=== PATIENT | female | born 1985 ===

== ENCOUNTER 2017-12-15 17:55 | Emergency (ER) | payer OTHER ==
[2017-12-15 18:10] VITALS: RESP 16
--- NOTE | 2017-12-15 18:46 | ED PDOC ---
HPI: Female Pain Time Seen by Provider: 12/15/17 18:26 Chief Complaint (Nursing): Female Genitourinary Chief Complaint (Provider): with abdominal pain and bleeding History Per: Patient Additional Complaint(s): 32-year-old female currently 10 weeks presents with abdominal pain and vaginal bleeding that started earlier today. Patient has mild nausea with no vomiting. This patient's second . She has one child and denies history of miscarriage or ectopic. PMD: none Past Medical History Reviewed: Historical Data, Nursing Documentation, Vital Signs Vital Signs: Last Vital Signs Temp 99.2 F 12/15/17 18:07 Pulse 67 12/15/17 18:07 Resp 16 12/15/17 18:07 BP 92/63 L 12/15/17 18:07 Pulse Ox 99 12/15/17 18:07 - Medical History PMH: No Chronic Diseases Other PMH: - Surgical History Surgical History: No Surg Hx - Family History Family History: States: No Known Family Hx - Living Arrangements Living Arrangements: With Family - Social History Current smoker - smoking cessation education provided: No Alcohol: None Drugs: Denies - Allergies Allergies/Adverse Reactions: Allergies Allergy/AdvReac Type Severity Reaction Status Date / Time No Known Allergies Allergy Verified 12/15/17 18:07 Review of Systems ROS Statement: Except As Marked, All Systems Reviewed And Found Negative Constitutional: Negative for: Fever Genitourinary Female: Positive for: Vaginal Bleeding, Pelvic Pain Physical Exam - Reviewed Nursing Documentation Reviewed: Yes Vital Signs Reviewed: Yes - Physical Exam Appears: Positive for: Well, Non-toxic, No Acute Distress Skin: Positive for: Normal Color. Negative for: Rash Eye Exam: Positive for: Normal appearance Cardiovascular/Chest: Positive for: Regular Rate, Rhythm Respiratory: Positive for: Normal Breath Sounds Gastrointestinal/Abdominal: Positive for: Soft. Negative for: Tenderness, Distended, Guarding, Rebound Back: Negative for: L CVA Tenderness, R CVA Tenderness Extremity: Positive for: Normal ROM Neurologic/Psych: Positive for: Alert, Oriented - Laboratory Results Result Diagrams: 12/15/17 18:58 12/15/17 18:58 Urine POC: Positive Urine dip results: Positive for: Leukocyte Esterase (trace), Blood (small). Negative for: Nitrate, Ketones, Glucose, Bilirubin, Protein - ECG O2 Sat by Pulse Oximetry: 99 Pulse Ox Interpretation: Normal Medical Decision Making Medical Decision Makin32 y/o female with abdominal pain and bleeding Plan: test Urine dip CBC CMP Beta quant T&S IVF PO tylenol OB TV US Disposition - Clinical Impression Clinical Impression: Vaginal bleeding during - Patient ED Disposition Is Patient to be Admitted: Transfer of Care - Disposition Disposition: Transfer of Care Disposition Time: 20:00 Condition: FAIR Forms: [facility] (Kiswahili) Patient Signed Over To: [facility] [place] Handoff Comments: Signed out pending diagnostic testing results and final disposition
[2017-12-15] MEDS ORDERED: Sodium Chloride 0.9% 1,000 ML IV STA (18:48)
[2017-12-15 19:07] LABS: BASO % 0.7 % (0.0-2.0); EOS # 0.2 K/uL (0.0-0.7); EOS % 4.2 % (0.0-4.0); HEMOGLOBIN 12.2 g/dL (12.0-16.0); LYMPH # 1.1 K/uL (1.0-4.3); LYMPH % 19.3 % (20.0-40.0); MEAN CELL VOLUME 89.9 fl (81.0-99.0); MEAN CORPUSCULAR HEMOGLOBIN 30.9 pg (27.0-31.0); MEAN CORPUSCULAR HGB CONC 34.4 g/dL (33.0-37.0); MEAN PLATELET VOLUME 8.6 fl (7.2-11.7); MONO # 0.4 K/uL (0.0-0.8); MONO % 7.7 % (0.0-10.0); NEUT % 68.1 % (50.0-75.0); RBC 3.95 Mil/uL (3.80-5.20); RED CELL DISTRIBUTION WIDTH 13.5 % (11.5-14.5); WHITE BLOOD COUNT 5.8 K/uL (4.8-10.8)
[2017-12-15 19:18] LABS: ALB/GLOB RATIO 1.2 (1.0-2.1); ALBUMIN 3.5 g/dL (3.5-5.0); ALT/SGPT 33 U/L (9-52); AST/SGOT 22 U/L (14-36); BLOOD UREA NITROGEN 6 mg/dl (7-17); CALCIUM 8.6 mg/dL (8.4-10.2); GFR NON-AFRICAN AMERICAN > 60
[2017-12-15 19:30] LABS: SQUAMOUS EPITHIAL 4 /hpf (0-5); URINE BACTERIA RARE (<OCC); URINE BILIRUBIN NEGATIVE (NEGATIVE); URINE BLOOD SMALL (NEGATIVE); URINE CLARITY CLOUDY (Clear); URINE COLOR YELLOW (YELLOW); URINE GLUCOSE (UA) NEG (Normal); URINE LEUKOCYTE ESTERASE TRACE Leu/uL (Negative); URINE PROTEIN NEGATIVE (NEGATIVE); URINE UROBILINOGEN 0.2-1.0 mg/dL (0.2-1.0)
--- NOTE | 2017-12-15 21:44 | ED PDOC ---
- Laboratory Results Result Diagrams: 12/15/17 18:58 12/15/17 18:58 Urine POC: Positive - ECG O2 Sat by Pulse Oximetry: 99 Medical Decision Making Medical Decision Making: US with (+) gestational sac and (+) yolk sac in uterus. Questionable pole without cardiac activity. Blood type O (+) Discussed with patient and significant other. Repeat US. F/u with the clinic. Disposition - Clinical Impression Clinical Impression: Vaginal bleeding during - POA Present On Arrival: None - Disposition [facility] Disposition: Routine/Home Disposition Time: 21:43 Condition: FAIR Instructions: Bleeding With Forms: [facility] ([place]orese) Print Language: MACEDONIAN
[2017-12-15 21:55] VITALS: BP 93/50; PULSE 84; TEMP 98.8; O2SAT 100
--- NOTE | 2017-12-16 08:49 | US ---
Date of service: 12/15/2017 PROCEDURE: HISTORY: approx 10 weeks w/bleeding and pain COMPARISON: TECHNIQUE: FINDINGS: Normal size uterus. Intrauterine gestational sac corresponds to 7 weeks 4 days gestational age. pole with crown-rump length corresponding to 6 weeks gestational age. No heart motion. Ovaries within normal limits. Yolk sac present. IMPRESSION: pole without heart motion suggestive of demise. Correlate with beta HCG levels.
== END 2017-12-15 22:10 | disposition home or self-care (01) ==
LOC: H.ER 17:55
DX: O20.9 Hemorrhage in early pregnancy, unspecified (principal); Z3A.10 10 weeks gestation of pregnancy
CPT/HCPCS: 76817; 80053; 81003; 81025; 84702; 85025; 86850; 86900; 87086; 87181; 99284; J7030